=== PATIENT | female | born 1995 | race Caucasian/White ===

== ENCOUNTER 2017-08-03 07:11 | Emergency (ER) | payer BC ==
[2017-08-03 07:20] VITALS: BP 124/62
[2017-08-03 07:36] LABS: Urine Bilirubin Negative (NEGATIVE); Urine Blood 250 /ul (NEGATIVE); Urine Ketone Negative (NEGATIVE); Urine Protein 100 mg/dL (NEGATIVE); Urine Specific Gravity 1.025 SP.GR. (1.005-1.010); Urine Urobilinogen Normal (NORMAL); Urine pH 7.5 pH (5.0-7.0)
[2017-08-03 07:43] LABS: Urine Nitrite Positive (NEGATIVE)
[2017-08-03 07:44] LABS: Urine Appearance Cloudy; Urine Bacteria 4+; Urine Color Red
--- NOTE | 2017-08-03 07:55 | ERNOTE ---
ER Female HPI Stated Complaint: UTI Presenting Symptoms: dysuria Time Seen by Provider: 08/03/17 07:46 Source: patient Exam Limitations: no limitations Immunizations: IMMUNIZATION HX Immunizations Up to Date Yes History of Influenza Vaccine No Allergies/Adverse Reactions: Allergies No Known Allergies Allergy (Unverified 08/03/17 07:20) Home Medications: HOME MEDICATIONS Phenazopyridine HCl [Pyridium] 100 mg PO TID #6 tab 08/03/17 [Last Taken Unknown ] Sulfamethoxazole/Trimethoprim [Bactrim Ds] 1 tab PO BID #6 tab 08/03/17 [Last Taken Unknown] - History of Present Illness Narrative: onset of dysuria about midnight last night Timing: Present: getting worse Quality: Present: moderate Activities at Onset: Present: none Prior Abdominal Problems: Present: none Associated Symptoms: Present: denies symptoms Review of Systems - Review of Systems Constitutional: Absent: fever EYE: Present: no symptoms reported ENT: Present: no symptoms reported Respiratory: Present: no symptoms reported Cardiology: Present: no symptoms reported Gastrointestinal/Abdominal: Absent: nausea, vomiting Genitourinary: Present: frequency, dysuria Musculoskeletal: Present: no symptoms reported Skin: Present: no symptoms reported Neurological: Present: no symptoms reported Endocrine: Present: no symptoms reported Hematologic/Lymphatic: Present: no symptoms reported Psych: Present: no symptoms reported - Patient's Past Medical History Patient History - Medical: No pertinent hx Patient History - Cardiac/Respiratory: No pertinent hx Patient History - Cancer: No Hx of Cancer Patient History - Surgical Procedures: No surgical history Patient History - Other: None - Social History Living Situations: home Psych History: No pertinent hx Alcohol Use: none Drug Use: none - Immunizations Immunizations Up to Date: Yes History of Influenza Vaccine: No Physical Exam - Physical Exam General Appearance: Present: wd/wn, alert, no apparent distress Head Exam: Present: normal inspection, no evidence of injury Respiratory: Present: no respiratory distress, no accessory muscle use Gastrointestinal/Abdominal: Present: normal bowel sounds, tenderness - suprapubic. Absent: distended, guarding, rebound Back Exam: Present: no CVA tenderness, no vertebral tenderness Extremity Exam: Present: normal inspection, normal range of motion, no edema Neurological Exam: Present: alert, oriented, normal mood/affect, no motor/ sensory deficits Skin Exam: Present: normal color, warm/dry Lymphatic Exam: Present: no adenopathy ED Progress - Results and Orders Patient's Lab Results:: I have reviewed the patient's lab results. Results and Orders: Laboratory Tests 08/03/17 07:20 Urine Color Red Urine Appearance Cloudy Urine pH 7.5 Ur Specific [place] 1.025 Urine Protein 100 H Urine Glucose (UA) Negative Urine Ketones Negative Urine Blood 250 H Urine Nitrate Positive H Urine Bilirubin Negative Prot Sulfosalicylic Acd 4+ H Urine Urobilinogen Normal Ur Leukocyte Esterase 500 H Urine RBC 10-25 H Urine WBC 10-25 H Ur Epithelial Cells Trace Urine Bacteria 4+ H Urine Culture Comments Culture to follow - Vital Signs Vital Signs: Vital Signs 08/03/17 07:15 Temperature 36.7 C Pulse Rate 110 H Respiratory 12 Rate Blood Pressure 124/62 O2 Sat by Pulse 98 Oximetry - Progress/Reassessment Chief Complaint: Genitourinary Problem Progress:: Unchanged Departure Clinical Impression: Urinary tract infection Qualifiers: Urinary tract infection type: acute cystitis Hematuria presence: with hematuria Qualified Code(s): N30.01 - Acute cystitis with hematuria - Departure Disposition: Home self-care Condition: Good Instructions: Urinary Tract Infection, Adult, [id number] Referrals: Corey Amaro MD [Primary Care Provider] - Prescriptions: Phenazopyridine HCl [Pyridium] 100 mg PO TID #6 tab Sulfamethoxazole/Trimethoprim [Bactrim Ds] 1 tab PO BID #6 tab
== END 2017-08-03 08:00 | disposition home or self-care (01) ==
LOC: ER 07:11
DX: N30.01 Acute cystitis with hematuria (principal)